=== PATIENT | female | born 1980 | race Caucasian/White ===

== ENCOUNTER → 2017-02-16 | Outpatient (CLI) | payer OTHER ==
[~2017-02-16] MED LIST: DIAMOX 250MG250 MG PO; EFFEXOR XR37.5 MG/CA PO; EFFEXOR XR75 MG/CAP PO; VITAMIN D32000 I1 PO; VOLTAREN 75 DR75 MG PO; ZYRTEC 10MG10 MG PO
== END ==
LOC: COL.RAD 09:59
DX: R19.09 Other intra-abdominal and pelvic swelling, mass and lump (principal)

== ENCOUNTER → 2017-02-24 | Outpatient (CLI) | payer OTHER | LOC: COL.RAD 13:18 | DX: N20.1 Calculus of ureter (principal) ==